=== PATIENT | female | born 1965 | race Caucasian/White ===

== ENCOUNTER 2017-12-04 11:18 | Emergency (ER) | payer BC, OTHER ==
[~2017-12-04] VITALS: Ht 165.1 cm; Wt 119.0 kg
[~2017-12-04 11:18] MED LIST: CALC600T9 PO; FERR325T51 PO; LEVO125T72 PO; MULT-506 PO
[2017-12-04 11:21] VITALS: TEMP 36.9; Ht 165.1 cm; Wt 119.0 kg
[2017-12-04] MEDS ORDERED: MISCCAP80 PO (12:01)
[2017-12-04] MEDS ORDERED: LEVO137T3 PO (12:01)
[2017-12-04] MEDS ORDERED: DICY10CA55 PO (12:02)
--- NOTE | 2017-12-04 12:15 | DIAGNOSTIC IMAGING REPORT ---
ABDOMEN 2VIEW W/PA CHEST RTN CLINICAL HISTORY: 52 years-old Female presenting with R flank pain. TECHNIQUE: PA view of the chest and supine and upright views of the abdomen were obtained. COMPARISON: None. FINDINGS: Cardiomediastinal silhouette normal. Lungs and pleural spaces clear. Nonobstructive bowel gas pattern. Moderate stool burden. No gross pneumoperitoneum. Gallstones suspected. Allowing for bowel gas and stool, no calcifications to suggest nephrolithiasis. No convincing evidence of ureteral calculi. Multiple pelvic phleboliths. Osseous structures normal. IMPRESSION: 1. No acute cardiopulmonary disease. 2. No radiographic evidence of renal or ureteral calculi. 3. Findings suggestive of constipation. 4. Cholelithiasis. Electronically signed by: Nawaf Young M.D. 12/04/2017 12:14 PM Dictated Date/Time: 12/04/2017 12:12 PM
[2017-12-04 12:19] LABS: BASO % 0.3 %; BASO ABS # 0.02 K/uL (0-0.2); EOS % 2.7 %; EOS ABS # 0.16 K/uL (0-0.5); HEMATOCRIT 42.1 % (37-47); HEMOGLOBIN 14.6 g/dL (12.0-16.0); IG# 0.01 K/uL (0.00-0.02); LYMPH % 32.8 %; LYMPH ABS # 1.96 K/uL (1.2-3.4); MEAN CELL VOLUME 85.9 fL (80-100); MEAN CORPUSCULAR HEMOGLOBIN 29.8 pg (25-34); MEAN CORPUSCULAR HGB CONC 34.7 g/dl (32-36); MEAN PLATELET VOLUME 9.8 fL (7.4-10.4); MONO % 8.2 %; MONO ABS # 0.49 K/uL (0.11-0.59); NEUT % 55.8 %; NEUT ABS # 3.33 K/uL (1.4-6.5); PLATELET COUNT 183 K/uL (130-400); RED CELL DISTRIBUTION WIDTH CV 13.4 % (11.5-14.5); WHITE BLOOD COUNT 5.97 K/uL (4.8-10.8)
[2017-12-04 12:36] LABS: ALBUMIN 3.9 gm/dl (3.4-5.0); CALCIUM 9.2 mg/dl (8.5-10.1); CREATININE 0.75 mg/dl (0.60-1.20); POTASSIUM 3.6 mmol/L (3.5-5.1)
[2017-12-04] MEDS ORDERED: MoRPHine SULFATE 4 MG/ML 1 ML CARP\\VIAL IV STA (12:40)
[2017-12-04 12:41] LABS: CKMB 5.1 ng/ml (0.5-3.6); TOTAL PROTEIN 8.2 gm/dl (6.4-8.2)
--- NOTE | 2017-12-04 12:45 | DIAGNOSTIC IMAGING REPORT ---
(RENAL)RETROPERITON COMP HISTORY: Flank pain R flank pain COMPARISON: None. FINDINGS: Right kidney: Maximum dimension 1.5 cm. No evidence for hydronephrosis. Normal corticomedullary differentiation and cortical thickness. Left kidney: Maximum dimension 11.1 cm. No evidence for hydronephrosis. Normal corticomedullary differentiation and cortical thickness. Bladder: No bladder wall thickening. The bilateral ureteral jets were identified. IMPRESSION: Normal renal ultrasound. Note is made of several gallstones within the gallbladder lumen. Normal caliber bile ducts. The above report was generated using voice recognition software. It may contain grammatical, syntax or spelling errors. Electronically signed by: Pedro Muñoz M.D. 12/04/2017 12:44 PM Dictated Date/Time: 12/04/2017 12:42 PM
[2017-12-04] MEDS ORDERED: HYDR-5688 PO (13:52)
--- NOTE | 2017-12-04 13:54 | EMERGENCY ROOM VISIT NOTE ---
History First contact with patient: 11:28 Chief Complaint: ABDOMINAL PAIN Stated Complaint: PAIN IN RT SIDE Nursing Triage Summary: pt to the ED with c/o getting up this am with sharp pain in right side and not going away and is intermittant has been having some "GI distress" +nausea History of Present Illness The patient is a 52 year old female who presents to the Emergency Room via private vehicle accompanied by male with complaints of "pain in right side". The patient states that she has been dealing with some abdominal issues lately, but notes that this morning around 5:30 or 6 AM she will come and noted pain in the right lower quadrant radiating to the right flank. She notes that most of the pain is in the right flank. There is associated nausea. She denies any vomiting, diarrhea, constipation, or urinary symptoms. In regard to previous abdominal surgeries, she does have a hysterectomy however does still have her ovaries. Review of Systems A complete 10-point Review of Systems was discussed with the patient, with pertinent positives and negatives listed in the History of Present Illness. All remaining Review of Systems questions can be considered negative unless otherwise specified. Past Medical/Surgical History hysterectomy Social History Smoking Status: Never Smoker Current/Historical Medications Scheduled Dicyclomine Hcl (Bentyl), 2-3 TAB PO DAILY Levothyroxine Sodium (Levothyroxine Sodium), 1 TAB PO DAILY Multivitamin (Multivitamin), 1 TAB PO DAILY Probiotic Product (Probiotic), 1 CAP PO DAILY Scheduled PRN Hydrocodone/Acetaminophen 5MG/325MG ([place] 5MG/325MG), 1-2 TABLET PO Q6 PRN for Pain Allergies Coded Allergies: Ibuprofen (Unverified Allergy, Severe, FACE SWELLING, 12/04/17) Latex1 -Allergic Contact Dermititis (Unverified Allergy, Severe, RASH, ) Gluten (Unverified Allergy, Unknown, ., 12/04/17) Physical Exam Vital Signs Date Time Temp Pulse Resp B/P (MAP) Pulse Ox O2 Delivery O2 Flow Rate FiO2 12/04/17 14:09 60 18 172/97 100 12/04/17 13:29 57 18 99 Room Air 12/04/17 12:29 62 18 161/98 99 Room Air 12/04/17 11:21 36.9 65 18 181/116 98 Room Air Physical Exam VITAL SIGNS - Vital signs and nursing notes were reviewed. Hypertensive. Afebrile. GENERAL -52-year-old female appearing her stated age who is in no acute distress. Communicates well with provider and answers questions appropriately. SKIN - Without rashes. No petechial or meningeal rash. HEAD - NC/AT. EYES - Sclera anicteric. EARS - No deformities of external structures noted on gross examination bilaterally. NOSE - Midline and without cyanosis. MOUTH/OROPHARYNX - Without perioral cyanosis. LUNGS - Chest wall symmetric without accessory muscle use, intercostals retractions, or central cyanosis. Normal vesicular breath sounds CTA B/L. No wheezes, rales, or rhonchi appreciated. CARDIAC - RRR with S1/S2. No murmur, rubs, or gallops appreciated. ABDOMEN - Abdominal contour normal without pulsations or visible masses. BS normoactive all four quadrants. R mid abdomen tenderness and R flank. No suprabubic or true LLQ or RLQ tenderness. No palpable masses, hepatosplenomegaly , or ascites noted. Medical Decision & Procedures ER Provider Diagnostic Interpretation: (RENAL)RETROPERITON COMP HISTORY: Flank pain R flank pain COMPARISON: None. FINDINGS: Right kidney: Maximum dimension 1.5 cm. No evidence for hydronephrosis. Normal corticomedullary differentiation and cortical thickness. Left kidney: Maximum dimension 11.1 cm. No evidence for hydronephrosis. Normal corticomedullary differentiation and cortical thickness. Bladder: No bladder wall thickening. The bilateral ureteral jets were identified. IMPRESSION: Normal renal ultrasound. Note is made of several gallstones within the gallbladder lumen. Normal caliber bile ducts. The above report was generated using voice recognition software. It may contain grammatical, syntax or spelling errors. Electronically signed by: Pedro Muñoz M.D. 12/04/2017 12:44 PM Dictated Date/Time: 12/04/2017 12:42 PM ABDOMEN 2VIEW W/PA CHEST RTN CLINICAL HISTORY: 52 years-old Female presenting with R flank pain. TECHNIQUE: PA view of the chest and supine and upright views of the abdomen were obtained. COMPARISON: None. FINDINGS: Cardiomediastinal silhouette normal. Lungs and pleural spaces clear. Nonobstructive bowel gas pattern. Moderate stool burden. No gross pneumoperitoneum. Gallstones suspected. Allowing for bowel gas and stool, no calcifications to suggest nephrolithiasis. No convincing evidence of ureteral calculi. Multiple pelvic phleboliths. Osseous structures normal. IMPRESSION: 1. No acute cardiopulmonary disease. 2. No radiographic evidence of renal or ureteral calculi. 3. Findings suggestive of constipation. 4. Cholelithiasis. Electronically signed by: Nawaf Young M.D. 12/04/2017 12:14 PM Dictated Date/Time: 12/04/2017 12:12 PM Laboratory Results 12/04/17 11:38 Red Blood Count 4.90, Mean Corpuscular Volume 85.9, Mean Corpuscular Hemoglobin 29.8, Mean Corpuscular Hemoglobin Concent 34.7, Mean Platelet Volume 9.8, Neutrophils (%) (Auto) 55.8, Lymphocytes (%) (Auto) 32.8, Monocytes (%) (Auto) 8.2, Eosinophils (%) (Auto) 2.7, Basophils (%) (Auto) 0.3, Neutrophils # (Auto) 3.33, Lymphocytes # (Auto) 1.96, Monocytes # (Auto) 0.49, Eosinophils # (Auto) 0.16, Basophils # (Auto) 0.02 12/04/17 11:40 Test 12/04/17 11:30 12/04/17 11:38 12/04/17 11:40 Urine Color YELLOW Urine Appearance CLEAR (CLEAR) Urine pH 7.0 (4.5-7.5) Urine Specific [place] 1.011 (1.000-1.030) Urine Protein NEG (NEG) Urine Glucose (UA) NEG (NEG) Urine Ketones NEG (NEG) Urine Occult Blood NEG (NEG) Urine Nitrite NEG (NEG) Urine Bilirubin NEG (NEG) Urine Urobilinogen NEG (NEG) Urine Leukocyte Esterase TRACE (NEG) Urine WBC (Auto) 0 /hpf (0-5) Urine RBC (Auto) 0-4 /hpf (0-4) Urine Hyaline Casts (Auto) 1-5 /lpf (0-5) Urine Epithelial Cells (Auto) 10-20 /lpf (0-5) Urine Bacteria (Auto) NEG (NEG) White Blood Count 5.97 K/uL (4.8-10.8) Red Blood Count 4.90 M/uL (4.2-5.4) Hemoglobin 14.6 g/dL (12.0-16.0) Hematocrit 42.1 % (37-47) Mean Corpuscular Volume 85.9 fL (80-100) Mean Corpuscular Hemoglobin 29.8 pg (25-34) Mean Corpuscular Hemoglobin Concent 34.7 g/dl (32-36) Platelet Count 183 K/uL (130-400) Mean Platelet Volume 9.8 fL (7.4-10.4) Neutrophils (%) (Auto) 55.8 % Lymphocytes (%) (Auto) 32.8 % Monocytes (%) (Auto) 8.2 % Eosinophils (%) (Auto) 2.7 % Basophils (%) (Auto) 0.3 % Neutrophils # (Auto) 3.33 K/uL (1.4-6.5) Lymphocytes # (Auto) 1.96 K/uL (1.2-3.4) Monocytes # (Auto) 0.49 K/uL (0.11-0.59) Eosinophils # (Auto) 0.16 K/uL (0-0.5) Basophils # (Auto) 0.02 K/uL (0-0.2) RDW Standard Deviation 42.0 fL (36.4-46.3) RDW Coefficient of Variation 13.4 % (11.5-14.5) Immature Granulocyte % (Auto) 0.2 % Immature Granulocyte # (Auto) 0.01 K/uL (0.00-0.02) Anion Gap 6.0 mmol/L (3-11) Est Creatinine Clear Calc Drug Dose 112.0 ml/min Estimated GFR () 105.5 Estimated GFR (Non- 91.0 BUN/Creatinine Ratio 18.7 (10-20) Calcium Level 9.2 mg/dl (8.5-10.1) Magnesium Level 1.9 mg/dl (1.8-2.4) Total Bilirubin 0.4 mg/dl (0.2-1) Aspartate Amino Transf (AST/SGOT) 19 U/L (15-37) Alanine Aminotransferase (ALT/SGPT) 28 U/L (12-78) Alkaline Phosphatase 82 U/L (45-117) Total Creatine Kinase 308 U/L (26-192) Creatine Kinase MB 5.1 ng/ml (0.5-3.6) Creatine Kinase MB Ratio 1.7 (0-3.0) Total Protein 8.2 gm/dl (6.4-8.2) Albumin 3.9 gm/dl (3.4-5.0) Globulin 4.3 gm/dl (2.5-4.0) Albumin/Globulin Ratio 0.9 (0.9-2) Lipase 134 U/L (73-393) Medications Administered Medications (Trade) Dose Ordered Sig/Genia Route Start Time Stop Time Status Last Admin Dose Admin Morphine Sulfate (MoRPHine SULFATE INJ) 4 mg NOW STAT IV 12/04/17 12:40 12/04/17 12:41 DC 12/04/17 12:49 4 MG Medical Decision Patient was seen and evaluated as above. She presents to us with abdominal pain. She is nontoxic on exam. Pain is in the right flank. She recently had a CT scan of her abdomen and pelvis which I reviewed. This was in the [facility] system. This was performed 10/23/2017. I informed the patient that if possible and like to refrain from reradiating her. Plain film was obtained the abdomen as well as ultrasound of the retroperitoneal region looking for potential stone. X-ray reveals what appears to be a large stool burden in the right ascending colonic region where her pain is located. This is consistent with her presentation today. She was informed upon this. We decided to refrain from obtaining repeat CT scan. She is to use MiraLAX, a stool softener. I informed her that she was given morphine here and after thorough discussion will be given [place], however she is to take great care so as to not prevent worsening of her symptoms with these medications. This should be achieved with the use of high-fiber diet, adequate fluid intake, stool softeners and MiraLAX. There is no concern of leukocytosis, anemia or metabolic abnormality. I do not suspect any emergent process to abdominal pain. I do not suspect ovarian torsion. I do not suspect appendicitis. No red flags the [place] drug monitoring system. The patient was educated upon management, had questions answered prior to discharge, and was discharged home in good condition. She has an appointment tomorrow morning with her GI specialist. Case was discussed with the attending physician In the evaluation and treatment of this patient the following differential diagnoses were entertained: Constipation, diverticulitis, appendicitis, ovarian torsion, UTI, among others. Impression Primary Impression: Abdominal pain Departure Information Dispostion Home / Self-Care Condition GOOD Prescriptions Hydrocodone/Acetaminophen 5MG/325MG ([place] 5MG/325MG) Tab 1-2 TABLET PO Q6 Y for Pain, #15 TAB For Initial Treatment Prov: German Bunch PA-C 12/04/17 Referrals Polina Anderson DO (PCP) Patient Instructions My [facility] Additional Instructions You have been treated in the Emergency Department your Abdominal Pain. Laboratory results and imaging studies have ruled out any emergent causes for your abdominal pain which would warrant admission or surgery. You have been prescribed NORCO to be used for pain control. This is a narcotic medication. You cannot drive or consume alcohol while on this medicine. This medicine should only be used for pain that cannot be controlled with over-the- counter pain medicines. As we discussed I suspect that he will likely constipated/have stool on the right side causing her pain. I do recommend a stool softener such as Colace, as well as MiraLAX. Please pick these up at the pharmacy as they're over-the- counter. Please take according to the package. Drink plenty of water and stay well hydrated. As with any trip to the Emergency Department, you should follow-up with your Primary Care Provider from today's visit. Return to the emergency department if your symptoms persist despite treatment plan outlined above or if the following symptoms occur: increased fevers, chills , worsening nausea/vomiting, blood in your stool or urine.
[2017-12-04 14:09] VITALS: BP 172/97; PULSE 60; O2SAT 100
== END 2017-12-04 14:10 | disposition home or self-care (01) ==
LOC: C.EDB 11:19 → C.EDC 14:10
DX: R10.9 Unspecified abdominal pain (principal); Z79.899 Other long term (current) drug therapy; Z88.8 Allergy status to other drugs, medicaments and biological substances; Z91.018 Allergy to other foods; Z91.048 Other nonmedicinal substance allergy status